=== PATIENT | female | born 1980 | race Caucasian/White ===

== ENCOUNTER 2018-04-29 01:28 | Emergency (ER) | payer SELFPAY ==
[~2018-04-29] VITALS: Ht 157.5 cm; Wt 71.7 kg
[2018-04-29 01:37] VITALS: BP 106/57; PULSE 81; RESP 16; Ht 157.5 cm; Wt 71.7 kg
== END 2018-04-29 04:12 | disposition left against medical advice (07) ==
LOC: FTE 01:28
DX: Z53.21 Procedure and treatment not carried out due to patient leaving prior to being seen by health care provider (principal)